=== PATIENT | female | born 1985 | race Caucasian/White ===

== ENCOUNTER → 2023-04-26 15:49 | Outpatient (REF) | payer BC, SELFPAY | LOC: DHCBC HW 15:49 | PROVIDERS: ATTENDING PHYSICIAN Internal Medicine Cardiovascular Disease; FAMILY PHYSICIAN Internal Medicine | DX: R00.2 Palpitations (principal) | CPT/HCPCS: 93306 ==

== ENCOUNTER → 2023-04-29 10:07 | Outpatient (REF) | payer BC, SELFPAY | LOC: RCS 10:07 | PROVIDERS: ATTENDING PHYSICIAN Internal Medicine Cardiovascular Disease; FAMILY PHYSICIAN Internal Medicine | DX: R53.83 Other fatigue (principal) | CPT/HCPCS: 93017 ==

== ENCOUNTER → 2023-05-13 13:00 | Outpatient (REF) | payer BC, SELFPAY | LOC: WDC 13:00 | PROVIDERS: ATTENDING PHYSICIAN Internal Medicine | DX: Z12.31 Encounter for screening mammogram for malignant neoplasm of breast (principal) | CPT/HCPCS: 77063; 77067 ==

== ENCOUNTER → 2023-06-05 16:28 | Outpatient (REF) | payer BC, SELFPAY | LOC: RAD 16:28 | PROVIDERS: ATTENDING PHYSICIAN Internal Medicine | DX: M54.2 Cervicalgia (principal) | CPT/HCPCS: 72040 ==

== ENCOUNTER → 2023-07-18 | Outpatient (REF) | payer BC, SELFPAY | LOC: DHSLP | PROVIDERS: ATTENDING PHYSICIAN Internal Medicine; FAMILY PHYSICIAN Internal Medicine Critical Care Medicine | DX: G47.30 Sleep apnea, unspecified (principal); R06.83 Snoring; E66.9 Obesity, unspecified | CPT/HCPCS: 95800 ==

== ENCOUNTER 2023-10-30 11:58 | Emergency (ER) | payer OTHER, SELFPAY ==
[2023-10-30 12:00] VITALS: BP 160/100
[2023-10-30 12:19] VITALS: BMI 37.2
[2023-10-30 12:21] VITALS: BP 126/88
--- NOTE | 2023-10-30 12:37 | ED.GENMED ---
History of Present Illness
General
Chief Complaint: Chest Pain
Time Seen by Provider: 10/30/23 12:16
History of Present Illness
History of Present Illness:
Patient presents to the emergency department with chest pain. Symptoms started today acutely. She notes that she heard a pop on the right side of her sternum when she was moving her shoulder around. She notes tenderness and pain in that area.
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 She reports recently increasing the intensity of her physical therapy. Endorses pain with deep inhalation.
Past History
Past History
ED Past Medical History: None
ED Past Surgical History: Appendectomy, and Other (Breast lump removed)
Social History
Personal:
Living: with family
Employment: Employed
Phy Exam
Physical Exam
Physical Exam:
GENERAL APPEARANCE: NAD, well developed/ well nourished
EYES lids/conjunctiva normal
EARS/NOSE/THROAT Mucous membranes moist, uvula midline without oral pharyngeal erythema, exudate or swelling
HEAD/NECK normocephalic atraumatic, neck is supple.
RESPIRATORY respiratory effort normal, speaks in full sentences, no accessory muscle use. Lungs clear to auscultation without rhonchi, wheezes, rales
CHEST tenderness to right side of midsternum without palpable or visible abnormalities
CARDIAC Regular rate and rhythm, no edema.
ABDOMINAL Soft, ND/NT. No pulsatile masses on exam, rebound tenderness
MUSCLES/EXTREMITIES No abnormal range of motion, no swelling.
SKIN Warm, pink and dry. No rashes
NEUROLOGICAL Speech is clear and appropriate. Normal level of consciousness. 5/5 strength in all extremities.
PSYCH Normal mood and affect. Judgement/competence is appropriate
Scores
Heart Score for Chest Pain Patients
STEMI patient?: Not applicable
Course
Orders/Labs/Results
Orders:
Orders
10/30/23 12:04
Electrocardiogram (*1) Urgent
Reason for Study: Chest Pain
EKG- Treatment ONCE
10/30/23 12:30
Cardiac Monitoring- Treatment ONCE
EKG- Treatment ONCE
IV Insert/Care/Rem.- Treatment PRN
O2 Therapy [RESP] Urgent
Titrate/Wean O2 to maintain O2 sat greater than (%): 90
Special Instructions: Maintain sats >/=90%
Pulse Ox/spot Check [RESP] Urgent
Quantity: 1
Special Instructions: ON ROOM AIR
10/30/23 12:33
Complete Blood Count/With Diff Urgent
Comprehensive Metabolic Panel Urgent
Troponin I Urgent
10/30/23 12:36
Ketorolac [Toradol] 15 mg IV NOW STA
10/30/23 12:37
Ketorolac [Toradol] 15 mg .ROUTE .STK-MED ONE
10/30/23 13:32
CR Chest - 2 Views Urgent
Comment:
Reason For Exam: cp
Abnormal Lab Results
10/30/23
12:33
Chloride 109 H mmol/L
(98-107)
Carbon Dioxide 21 L mmol/L
(22-30)
BUN 22 H mg/dl
(7-17)
Glucose 108 H mg/dl
(70-99)
10/30/23 12:33
10/30/23 12:33
Vital Signs
Initial and Last Documented VS:
Initial Vital Signs
Temp Pulse Resp BP Pulse Ox
97.5 F 81 18 160/100 100
10/30/23 12:00 10/30/23 12:00 10/30/23 12:00 10/30/23 12:00 10/30/23 12:00
Last Documented Vital Signs
Temp Pulse Resp BP Pulse Ox
98.2 F 74 16 118/89 98
10/30/23 14:48 10/30/23 14:48 10/30/23 14:48 10/30/23 14:48 10/30/23 14:48
*Critical Care Note
Total Time (30-74mins, 75-104mins- exclusive of procedures): Not Applicable
ED Attending Note
ED Attending Note
ED Attending Note:
Patient presents with chest pain that is reproducible and occurred when moving her chest wall. She is nontoxic-appearing. EKG without ischemic changes. Clinically suspicious for costochondritis. Will check cardiac enzyme. Will check chest x-ray
to rule out pneumothorax or rib dislocation, though low suspicion for this clinically. She is PERC negative. Will treat symptomatically and reassess
-
Portions of this chart may have been created with voice recognition software.� Occasional wrong word or��sound alike� substitutions may have occurred due to the inherent limitations of voice recognition software.
Discharge Plan
Departure
Patient Disposition: Home (Routine Discharge)
Date of Disposition: 10/30/23
Time of Disposition: 14:12
Patient with high blood pressure during this ER visit?: Yes
Discharge Problem:
Chest pain
Instructions: Costochondritis
Prescriptions:
New
naproxen 500 mg tablet
500 mg PO BID Qty: 14 0RF
No Action
riboflavin (vitamin B2) [Vitamin B-2] 100 mg Tablet
200 mg PO DAILY
omeprazole 40 mg Capsule,Delayed Release(Dr/Ec)
40 mg PO DAILY
escitalopram oxalate [Lexapro] 10 mg Tablet
10 mg PO DAILY
magnesium Tablet
1 tab PO DAILY
Referrals:
Shirin Hall NP [Family Provider] -
Activity Restrictions/Additional Instructions:
We suspect your symptoms are caused by a condition known as costochondritis. This is an irritation of the cartilage between the sternum and the ribs. This may have been precipitated by your physical therapy session. Please discuss this with your
physical therapist. Please take the anti-inflammatory medicine as prescribed with food. You may take it with Pepcid if it bothers her stomach. Return to the ER with new or severe symptoms
Interventions
Interventions:
*Risk Screen - Suicide Last Done: 10/30/23 12:00
*General Assessment Last Done: 10/30/23 12:00
*Neglect/Abuse Screening Last Done: 10/30/23 12:00
ED- Fall Risk Assessment Last Done: 10/30/23 14:48
*ED COVID-19 Vaccine History Last Done: 10/30/23 12:32
*Nursing Disposition Last Done: 10/30/23 14:48
ED- Cardiac Assessment Last Done: 10/30/23 12:34
Discharge Date and Time
Discharge Date/Time: 10/30/23 14:50
Print Language: TAJIK
[2023-10-30] MEDS: TORADOL 15 MG IV (12:38)
[2023-10-30 12:57] LABS: % Basophils 0.5 % (0-2); % Eosinophils 2.2 % (0-6); % Immature Granulocytes 0.5 % (0-0.5); % Lymphocytes 34.6 % (20.5-51.1); % Monocytes 8.7 % (1.7-9.3); % Neutrophils 53.5 % (42.2-75.2); Absolute Eosinophils 0.1 10^3/uL (0-0.7); Absolute Lymphocytes 2.2 10^3/uL (1.2-3.4); Absolute Monocytes 0.6 10^3/uL (0.1-0.6); Absolute Neutrophils 3.4 10^3/uL (1.4-6.5); Hematocrit 40.9 % (37.0-47.0); Hemoglobin 14.3 g/dL (12.0-16.0); Mean Corpuscular Hgb 30.2 pg (27.0-31.0); Mean Corpuscular Volume 86.5 fL (81.0-99.0); Mean Platelet Volume 9.8 fL (7.4-10.4); Nucleated Red Blood Cells % 0 %; Platelet Count 214 10^3/uL (130-400); Red Blood Cell Count 4.73 10^6/uL (4.20-5.40); Red Cell Dist. Width 13.2 % (11.5-14.5); White Blood Cell Count 6.3 10^3/uL (4.8-10.8)
[2023-10-30 13:00] VITALS: BP 116/82
[2023-10-30 13:10] LABS: ALT (SGPT) 13 U/L (0-35); AST (SGOT) 22 U/L (14-36); Albumin 4.4 g/dl (3.5-5.0); Alkaline Phosphatase 61 U/L (38-126); Blood Urea Nitrogen 22 mg/dl (7-17); Calcium 9.5 mg/dl (8.4-10.2); Carbon Dioxide 21 mmol/L (22-30); Chloride 109 mmol/L (98-107); Estimated Creatinine Clearance 95 ml/min; Glucose 108 mg/dl (70-99); Potassium 4.1 mmol/L (3.5-5.1); Sodium 137 mmol/L (135-145); Total Bilirubin 0.8 mg/dl (0.2-1.3); Total Protein 6.8 g/dl (6.3-8.2); eGFR > 60.00
[2023-10-30 13:21] LABS: Troponin I < 0.012 ng/ml
[2023-10-30 14:36] VITALS: BP 118/89
[2023-10-30 14:48] VITALS: BP 118/89
== END 2023-10-30 14:50 | disposition home or self-care (01) ==
LOC: EMR 11:58
PROVIDERS: EMERGENCY PHYSICIAN Emergency Medicine; FAMILY PHYSICIAN Internal Medicine
DX: R07.89 Other chest pain (principal); R03.0 Elevated blood-pressure reading, without diagnosis of hypertension; Z88.1 Allergy status to other antibiotic agents; Z88.0 Allergy status to penicillin
CPT/HCPCS: 99285; 96374; 94760; 71046; 80053; 84484; 85025; 93005

== ENCOUNTER → 2023-11-20 11:29 | Outpatient (REF) | payer OTHER, SELFPAY | LOC: RAD 11:29 | PROVIDERS: ATTENDING PHYSICIAN Internal Medicine Rheumatology; FAMILY PHYSICIAN Internal Medicine | DX: M25.50 Pain in unspecified joint (principal); M46.1 Sacroiliitis, not elsewhere classified | CPT/HCPCS: 72170 ==

== ENCOUNTER → 2024-01-24 10:50 | Outpatient (REF) | payer OTHER, SELFPAY | LOC: RAD 10:50 | PROVIDERS: ATTENDING PHYSICIAN Nurse Practitioner Adult Health; FAMILY PHYSICIAN Internal Medicine | DX: M54.41 Lumbago with sciatica, right side (principal) | CPT/HCPCS: 72110 ==

== ENCOUNTER → 2024-08-29 10:37 | Outpatient (REF) | payer OTHER, SELFPAY | LOC: WDC 10:37 | PROVIDERS: ATTENDING PHYSICIAN Advanced Practice Midwife; FAMILY PHYSICIAN Internal Medicine | DX: Z12.31 Encounter for screening mammogram for malignant neoplasm of breast (principal) | CPT/HCPCS: 77063; 77067 ==

== ENCOUNTER 2024-11-22 16:09 | Emergency (ER) | payer OTHER, SELFPAY ==
[2024-11-22 16:19] VITALS: BP 148/96
--- NOTE | 2024-11-22 16:27 | ED.GENMED ---
History of Present Illness
General
Chief Complaint: Allergic Reaction
Source: patient
Exam Limitations: none
Time Seen by Provider: 11/22/24 16:25
Nursing documentation reviewed up to this point in time: agreed with
History of Present Illness
History of Present Illness:
39-year-old female with history of migraines, GERD, anxiety/depression, allergy to scents, presents stating that earlier today, while shopping at [facility], she experienced a reaction likely due to a fragrance exposure. The symptoms began with coughing
and throat tightness, followed by facial itching shortly after leaving the store. 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 Approximately an
hour later, the patient noticed increased itching of face and throat and vomited once. She stated that her weaving supervisor advised administering epinephrine if more than two symptoms persisted, which she did about an hour ago. The patient reports feeling
slightly better since using the EpiPen.
Past History
Past History
ED Past Medical History: GERD and Other (Migraines, anxiety/depression, Basia-Danlos syndrome)
ED Past Surgical History: Appendectomy, and Other (Breast lump removed)
Social History
Tobacco: Non-smoker
Alcohol: Occasional
Personal:
Living: with family
Employment: Employed
Review of Systems
Review of Systems
Allergies reviewed?: Yes
All Other Systems: ROS reviewed and negative except as documented in HPI and ROS
Respiratory: Denies trouble breathing
Cardiac: Denies chest pain
ABD/GI: Denies abdominal pain or nausea
Skin: Denies rash
Neurological: Denies headache
Phy Exam
Physical Exam
Physical Exam:
GENERAL: No acute distress. A&Ox3.
CONSTITUTIONAL: Afebrile.
EYES: clear, conjunctivae normal
ENMT: moist mucus membranes, Pharynx nl
RESPIRATORY: Regular respirations, nonlabored, lungs clear.
CARDIOVASCULAR: Regular rate and rhythm, no murmurs, no rubs.
GI: Soft, nontender, normal BS
MUSCULOSKELETAL: Moves with ease. Well perfused.
SKIN: Warm, dry, pink
PSYCH: Normal mood and affect. Well kept, interactive and appropriate
NEUROLOGIC: Awake, alert and oriented. No focal neurological deficits
Course
Orders/Labs/Results
Orders:
Orders
11/22/24 16:26
0.9% Sodium Chloride 1000 ml [Nss] 1,000 ml IV BOLUS
Albuterol Nebs [Ventolin Nebules] 2.5 mg INH R NOW STA
Dexamethasone Sod Phosphate [Decadron] 10 mg IV NOW STA
Diphenhydramine [Benadryl] 50 mg IV NOW STA
Famotidine [Pepcid] 20 mg IV NOW STA
Vital Signs
Initial and Last Documented VS:
Initial Vital Signs
Temp Pulse Resp BP Pulse Ox
98.0 F 106 20 148/96 98
11/22/24 16:19 11/22/24 16:19 11/22/24 16:19 11/22/24 16:19 11/22/24 16:19
Last Documented Vital Signs
Temp Pulse Resp BP Pulse Ox
98.0 F 114 24 122/64 99
11/22/24 16:19 11/22/24 18:00 11/22/24 18:00 11/22/24 18:00 11/22/24 18:00
MDM/Problems Addressed
Differential Diagnosis Includes:
allergic reaction, asthma, no sign of anaphylaxis
MDM/Problems Addressed:
39-year-old female with history of migraines, GERD, anxiety/depression, allergy to scents, reports that earlier today, while shopping at [facility], she experienced a reaction likely due to a fragrance exposure. The symptoms began with coughing and throat
tightness, followed by facial itching shortly after leaving the store. 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
coughing. Approximately an hour later, the patient noticed increased itching and experienced vomiting. She stated that her weaving supervisor advised administering epinephrine if more than two symptoms persisted, which she did about an hour ago. The patient
reports feeling slightly better since using the EpiPen.
6:00 p.m.
Pt is feeling better
Wants to go home
Stable for discharge
Patient had no true anaphylactic reaction she was basically asymptomatic on arrival, given Decadron which should cover her for the next 2-3 days, no need for any more steroids Rx for EpiPen sent to her pharmacy
*Pulse Oximetry
SaO2: 98
Oxygen Mode of Delivery: Room air
Patient hypoxic: no
*Critical Care Note
Total Time (30-74mins, 75-104mins- exclusive of procedures): Not Applicable
ED Attending Note
-
Portions of this chart may have been created with voice recognition software.� Occasional wrong word or��sound alike� substitutions may have occurred due to the inherent limitations of voice recognition software.
Discharge Plan
Departure
Patient Disposition: Home (Routine Discharge)
Date of Disposition: 11/22/24
Time of Disposition: 18:21
Patient with high blood pressure during this ER visit?: No
Condition: Good
Discharge Problem:
Allergic reaction
Instructions: Allergic reaction - ED (DC)
Prescriptions:
New
epinephrine 0.3 mg/0.3 mL auto-injector
0.3 ml IM Q5-15M PRN (Reason: anaphylaxis) Qty: 2 0RF
No Action
riboflavin (vitamin B2) [Vitamin B-2] 100 mg Tablet
200 mg PO DAILY
omeprazole 40 mg Capsule,Delayed Release(Dr/Ec)
40 mg PO DAILY
escitalopram oxalate [Lexapro] 10 mg Tablet
10 mg PO DAILY
magnesium Tablet
1 tab PO DAILY
naproxen 500 mg tablet
500 mg PO BID Qty: 14 0RF
Referrals:
Shirin Hall NP [Family Provider, Internal Medicine] - As needed
Activity Restrictions/Additional Instructions:
Obviously stay away from areas that have perfumes and other fragrances
Interventions
Interventions:
*Risk Screen - Suicide Last Done: 11/22/24 16:19
*General Assessment Last Done: 11/22/24 16:19
*Neglect/Abuse Screening Last Done: 11/22/24 16:53
*ED- Fall Risk Assessment Last Done: 11/22/24 16:53
*ED COVID-19 Vaccine History Last Done: 11/22/24 16:53
*Nursing Disposition Last Done: 11/22/24 18:44
ED- Cardiac Assessment Last Done: 11/22/24 16:43
ED- Pulmonary Assessment Last Done: 11/22/24 16:43
ED-Skin Assessment Last Done: 11/22/24 16:43
Discharge Date and Time
Discharge Date/Time: 11/22/24 18:55
Print Language: HUNGARIAN
[2024-11-22 16:31] VITALS: BP 150/82
[2024-11-22] MEDS: DECADRON 10 MG IV (16:37)
[2024-11-22] MEDS: NSS 1000 IV (16:37)
[2024-11-22] MEDS: PEPCID 20 MG IV (16:37)
[2024-11-22] MEDS: VENTOLIN NEBULES 2.5 MG INH (16:37)
[2024-11-22] MEDS: BENADRYL 50 MG IV (16:38)
[2024-11-22 16:53] VITALS: BMI 34.4
[2024-11-22 17:00] VITALS: BP 131/76
[2024-11-22 18:00] VITALS: BP 122/64
== END 2024-11-22 18:55 | disposition home or self-care (01) ==
LOC: EMR 16:09
PROVIDERS: EMERGENCY PHYSICIAN Emergency Medicine; FAMILY PHYSICIAN Internal Medicine
DX: T78.40XA Allergy, unspecified, initial encounter (principal); Y92.9 Unspecified place or not applicable; K21.9 Gastro-esophageal reflux disease without esophagitis; F41.8 Other specified anxiety disorders; Z90.49 Acquired absence of other specified parts of digestive tract
CPT/HCPCS: 99282; 94640; 96374; 96375; 96361

== ENCOUNTER 2025-03-20 11:06 | Emergency (ER) | payer OTHER, SELFPAY ==
[2025-03-20 11:09] VITALS: BP 152/103
--- NOTE | 2025-03-20 11:35 | ED.GENMED ---
History of Present Illness
General
Chief Complaint: Cold/Flu/URI Symptoms
Source: patient
Exam Limitations: none
Time Seen by Provider: 03/20/25 11:23
Nursing documentation reviewed up to this point in time: agreed with
History of Present Illness
History of Present Illness:
39-year-old female presents to the ER for evaluation. Patient believes she has the flu. Her family has had the flu. She started with fever chills body aches, headaches her family has all had the flu. On March 16. She denies any shortness of
breath. 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 She reports this recently was diagnosed in November by [facility] . When she gets sick it was recommended she come to the ER and have her ammonia checked
as liver dysfunction complications are associate with this deficiency.
Past History
Past History
ED Past Medical History: GERD and Other (Migraines, anxiety/depression, Basia-Danlos syndrome)
ED Past Surgical History: Appendectomy, and Other (Breast lump removed)
Social History
Tobacco: Non-smoker
Alcohol: Occasional
Personal:
Living: with family
Employment: Employed
Phy Exam
General Physical Exam
General Presentation: no apparent distress
General age: appears stated age
General Skin: warm and dry
General Habitus: normal
General Hydration: appears well hydrated
Cardiovascular Exam
Cardiovascular Exam: regular rate/rhythm, no murmur and normal peripheral pulses
Pulmonary Exam
Pulmonary Exam: lungs clear and no respiratory distress
Neurological Exam
Neurological Exam: alert and oriented x3
Musculoskeletal Exam
Musculoskeletal Exam: full ROM
Skin Exam
Skin Exam: normal color and warm/dry
Psychiatric Exam
Psychiatric Exam: normal mood/affect
Course
Orders/Labs/Results
Orders:
Orders
03/20/25 11:49
IV Insert/Care/Rem.- Treatment PRN
0.9% Sodium Chloride 1000 ml [Nss] 1,000 ml IV BOLUS
Ketorolac [Toradol] 15 mg IV NOW STA
03/20/25 12:01
Ammonia Urgent
Complete Blood Count/With Diff Urgent
Comprehensive Metabolic Panel Urgent
03/20/25 12:15
COVID-19 Antigen Urgent
Source: Nasal Swab
Influenza A+B Rapid Molecular Urgent
DAIMEN Source: Nasal Swab
Specimen Description:
03/20/25 14:57
Vital Signs- Treatment ONCE
Frequency: Once
Abnormal Lab Results
03/20/25
12:01
WBC 4.4 L 10^3/uL
(4.8-10.8)
Absolute Lymphs (auto) 0.9 L 10^3/uL
(1.2-3.4)
Absolute Monos (auto) 0.8 H 10^3/uL
(0.1-0.6)
Lymphocytes % 19.9 L %
(20.5-51.1)
Monocytes % 18.7 H %
(1.7-9.3)
Chloride 111 H mmol/L
(98-107)
Carbon Dioxide 19 L mmol/L
(22-30)
03/20/25 12:01
03/20/25 12:01
Vital Signs
Initial and Last Documented VS:
Initial Vital Signs
Temp Pulse Resp BP Pulse Ox
98.5 F 108 19 152/103 98
03/20/25 11:09 03/20/25 11:09 03/20/25 11:09 03/20/25 11:09 03/20/25 11:09
Last Documented Vital Signs
Temp Pulse Resp BP Pulse Ox
98.5 F 90 16 121/82 100
03/20/25 11:09 03/20/25 14:58 03/20/25 14:58 03/20/25 14:58 03/20/25 14:58
Emergency Dispatcher consulted with Physician
Emergency Dispatcher consulted with physician?: Yes
Name of Physician Consulted: basia
MDM/Problems Addressed
Differential Diagnosis Includes:
not limited to: influenza
MDM/Problems Addressed:
As documented patient is a 39-year-old with recent diagnosis of Ornithine transcarbamylase deficiency. Started with flulike symptoms for the past several days. With this diagnosis patient was instructed to come to the ER for blood work including
ammonia check when she gets sick. She is in no acute distress.
She was recently diagnosed with this metabolic deficiency in November on blood work however has never had any symptoms. She has also never been sick since the diagnosis. She presents awake alert in no acute distress lungs are clear
nontachypneic nontachycardic labs unremarkable including normal ammonia. Patient was given fluids here in the ER Toradol tylenol stable for d/c home.
Chronic conditions affecting care:
Metabolic deficiency
*Pulse Oximetry
SaO2: 98
Oxygen Mode of Delivery: Room air
Patient hypoxic: no
*Critical Care Note
Total Time (30-74mins, 75-104mins- exclusive of procedures): Not Applicable
ED Attending Note
-
Portions of this chart may have been created with voice recognition software.� Occasional wrong word or��sound alike� substitutions may have occurred due to the inherent limitations of voice recognition software.
Discharge Plan
Departure
Patient Disposition: Home (Routine Discharge)
Date of Disposition: 03/20/25
Time of Disposition: 15:00
Patient with high blood pressure during this ER visit?: Yes
Condition: Fair
Covid-19: Not Applicable
Discharge Problem:
Influenza A
Instructions: Flu in adults (DC), BLOOD PRESSURE
Prescriptions:
No Action
riboflavin (vitamin B2) [Vitamin B-2] 100 mg Tablet
200 mg PO DAILY
omeprazole 40 mg Capsule,Delayed Release(Dr/Ec)
40 mg PO DAILY
escitalopram oxalate [Lexapro] 10 mg Tablet
10 mg PO DAILY
magnesium Tablet
1 tab PO DAILY
naproxen 500 mg tablet
500 mg PO BID Qty: 14 0RF
epinephrine 0.3 mg/0.3 mL auto-injector
0.3 ml IM Q5-15M PRN (Reason: anaphylaxis) Qty: 2 0RF
Referrals:
Shirin Hall NP [Family Provider, Internal Medicine]
Activity Restrictions/Additional Instructions:
Get plenty of rest. Increase fluids. You may alternate between ibuprofen and Tylenol. Closely follow-up with your family doctor in the next 2 days for reevaluation and your specialist if needed. Return if any worsening of symptoms
Interventions
Interventions:
*General Assessment Last Done: 03/20/25 11:10
*Neglect/Abuse Screening Last Done: 03/20/25 11:10
*ED COVID-19 Vaccine History Last Done: 03/20/25 11:10
*ED Influenza Vaccine History Last Done: 03/20/25 11:10
*Risk Screen - Suicide (C-SSRS) Last Done: 03/20/25 11:10
ED- Pulmonary Assessment Last Done: 03/20/25 12:00
Discharge Date and Time
Print Language: SERBIAN
[2025-03-20] MEDS: NSS 1000 IV (11:58)
[2025-03-20] MEDS: TORADOL 15 MG IV (12:12)
[2025-03-20 12:14] LABS: Hematocrit 41.8 % (37.0-47.0); Hemoglobin 14.2 g/dL (12.0-16.0); Mean Corp Hgb Conc. 34.0 g/dL (33.0-37.0); Mean Corpuscular Volume 88.6 fL (81.0-99.0); Nucleated Red Blood Cells % 0 %; Platelet Count 158 10^3/uL (130-400); Red Cell Dist. Width 12.4 % (11.5-14.5)
[2025-03-20 12:23] LABS: ALT (SGPT) 12 U/L (0-35); AST (SGOT) 21 U/L (14-36); Albumin 4.4 g/dl (3.5-5.0); Alkaline Phosphatase 51 U/L (38-126); Blood Urea Nitrogen 9 mg/dl (7-17); Calcium 9.1 mg/dl (8.4-10.2); Carbon Dioxide 19 mmol/L (22-30); Chloride 111 mmol/L (98-107); Glucose 92 mg/dl (70-99); Potassium 3.8 mmol/L (3.5-5.1); Sodium 137 mmol/L (135-145); Total Protein 7.1 g/dl (6.3-8.2); eGFR > 60.00
[2025-03-20 12:29] LABS: Ammonia 17 umol/L (9-30)
[2025-03-20 12:45] LABS: COVID-19 Antigen Negative (Negative)
[2025-03-20 14:58] VITALS: BP 121/82
[2025-03-20] MEDS: TYLENOL 1000 MG PO (15:13)
== END 2025-03-20 15:36 | disposition home or self-care (01) ==
LOC: EMR 11:06
PROVIDERS: Nurse Practitioner; EMERGENCY PHYSICIAN Emergency Medicine; FAMILY PHYSICIAN Internal Medicine
DX: J10.1 Influenza due to other identified influenza virus with other respiratory manifestations (principal); Z11.52 Encounter for screening for COVID-19; Z90.49 Acquired absence of other specified parts of digestive tract
CPT/HCPCS: 96374; 96361; 99284; 80053; 82140; 85025; 87502; 87811